=== PATIENT | female | born 1985 | race African-American/Black ===

== ENCOUNTER 2022-06-27 16:39 | Emergency (ER) | payer OTHER ==
[2022-06-27 16:45] VITALS: BMI 32.1
[2022-06-27] MEDS ORDERED: SODIUM CHLORIDE 1,000 ML IV STA (17:53)
[2022-06-27] MEDS ORDERED: SODIUM CHLORIDE 0.9% 500 ML INFUS.BAG IV ONE (17:57)
[2022-06-27 18:06] LABS: HEMATOCRIT 32.8 % (32.4-45.2); HEMOGLOBIN 11.4 GM/dL (10.7-15.3); MCH 31.2 pg (25.7-33.7); MCHC 34.7 g/dl (32.0-36.0); MEAN PLT VOLUME 10.2 fl (7.5-11.1); PLATELET COUNT 107 10^3/uL (134-434); RBC 3.65 M/mm3 (3.60-5.2); RDW 14.5 % (11.6-15.6); WHITE BLOOD COUNT 8.2 K/mm3 (4.0-10.0)
[2022-06-27] MEDS ORDERED: ACETAMINOPHEN 1000 MG/100 ML BAG IVPB ONE (18:18)
[2022-06-27 18:37] LABS: ALBUMIN 2.9 g/dl (3.4-5.0); BLOOD UREA NITROGEN 4.1 mg/dL (7-18); CALCIUM 8.8 mg/dL (8.5-10.1)
[2022-06-27 18:41] LABS: ANISOCYTOSIS 1+; CREATININE 0.5 mg/dL (0.55-1.3); MACROCYTOSIS 1+
[2022-06-27 18:42] LABS: TOT PROT 6.6 g/dl (6.4-8.2)
[2022-06-27 18:50] LABS: BILIRUBIN,TOTAL 0.2 mg/dL (0.2-1)
[2022-06-27] MEDS ORDERED: ACETAMINOPHEN INJECTION 100 ML IVPB ONE (19:34)
[2022-06-27 22:53] VITALS: BP 122/85; PULSE 115; RESP 18; TEMP 98
== END 2022-06-27 23:41 | disposition home or self-care (01) ==
LOC: JER 16:39
PROC: 3E0333Z Introduction of Anti-inflammatory into Peripheral Vein, Percutaneous Approach (ICD-10-PCS; principal; 2022-06-27)
PROC: 3E0337Z Introduction of Electrolytic and Water Balance Substance into Peripheral Vein, Percutaneous Approach (ICD-10-PCS; 2022-06-27)
DX: O98.53 Other viral diseases complicating the puerperium (principal); U07.1 COVID-19; Z3A.33 33 weeks gestation of pregnancy
CPT/HCPCS: 0241U-QW; 36415; 80053; 84443; 85025; 93005; 93010; 99285-25

== ENCOUNTER 2022-08-06 06:15 | Inpatient (IN) | payer OTHER ==
[2022-08-06] MEDS ORDERED: CITRIC ACID/SODIUM CITRATE 30 ML UNIT-DOSE CUP PO ONE ×2 (06:20→09:13)
[2022-08-06] MEDS ORDERED: ELECTROLYTE-148 SOLN 500 ML IV SCH (06:30)
[2022-08-06 06:50] VITALS: BMI 32.8
[2022-08-06] MEDS ORDERED: ELECTROLYTE-148 SOLN 1,000 ML IV SCH ×2 (07:00→09:15)
[2022-08-06] MEDS ORDERED: ONDANSETRON 4 MG/2 ML VIAL IVPUSH PRN (08:45)
[2022-08-06] MEDS ORDERED: morphine SULFATE (PF) 1 MG/2 ML SYRINGE ONE (08:49)
[2022-08-06] MEDS ORDERED: ELECTROLYTE-148 SOLN 500 ML IV ONE (09:13)
[2022-08-06] MEDS ORDERED: ceFAZolin SODIUM 1 GM VIAL ONE (09:31)
[2022-08-06] MEDS ORDERED: PHENYLEPHRINE HCL 10 MG/1 ML SINGLE DOSE VIAL ONE (09:31)
[2022-08-06] MEDS ORDERED: ONDANSETRON 4 MG/2 ML VIAL ONE (09:31)
[2022-08-06] MEDS ORDERED: OXYTOCIN 10 UNITS/ML VIAL ONE ×2 (09:31→09:54)
[2022-08-06] MEDS ORDERED: ACETAMINOPHEN 325 MG TABLET (FP) PO PRN (10:43)
[2022-08-06 10:44] LABS: CORD HCO3 26.7 mmHg (20-29); CORD PCO2 68.5 mmHg (30-78); CORD pH 7.208 (7.14-7.44)
[2022-08-06 10:54] LABS: CORD BASE EXCESS -1.8 mmol/L (0-2); CORD HCO3 24.6 mmHg (20-29); CORD PCO2 48.1 mmHg (30-78); CORD pH 7.326 (7.14-7.44)
[2022-08-06] MEDS ORDERED: OXYTOCIN 20 UNITS in 0.9% NS 20 UNIT/1,000 ML INFUS.BAG IV ONE (12:13)
[2022-08-06] MEDS: OXYTOCIN 20 UNITS in 0.9% NS 20 UNIT/1,000 ML INFUS.BAG IV SCH ×2 (12:15→21:11)
[2022-08-06] MEDS: IBUPROFEN 800 MG/8 ML IJ IVPB PRN ×2 (13:00→21:06)
[2022-08-06] MEDS ORDERED: oxyCODONE HCL 5 MG TABLET PO PRN (22:43)
[2022-08-07] MEDS: SIMETHICONE 80 MG TAB.CHEW (FP) PO PRN ×3 (03:48→16:34)
[2022-08-07] MEDS: IBUPROFEN 600 MG TABLET (FP) PO PRN ×2 (03:48→16:34)
[2022-08-07] MEDS: IBUPROFEN 800 MG/8 ML IJ IVPB PRN (05:51)
[2022-08-07 09:55] VITALS: RESP 18
[2022-08-07] MEDS ORDERED: BISACODYL 10 MG SUPP.RECT RC PRN (10:43)
[2022-08-07 11:29] LABS: BASO % 0.1 % (0-2.0); EOS % 0.5 % (0-4.5); HEMATOCRIT 32.5 % (32.4-45.2); HEMOGLOBIN 10.9 GM/dL (10.7-15.3); LYMPH % 10.7 % (8-40); MCH 30.3 pg (25.7-33.7); MCHC 33.6 g/dl (32.0-36.0); MEAN CELL VOLUME 90.4 fl (80-96); MEAN PLT VOLUME 10.8 fl (7.5-11.1); MONO % 9.7 % (3.8-10.2); PLATELET COUNT 146 10^3/uL (134-434); RDW 14.3 % (11.6-15.6); WHITE BLOOD COUNT 16.2 K/mm3 (4.0-10.0)
[2022-08-08] MEDS: SIMETHICONE 80 MG TAB.CHEW (FP) PO PRN ×3 (01:45→15:24)
[2022-08-08] MEDS: IBUPROFEN 600 MG TABLET (FP) PO PRN ×4 (01:45→21:23)
[2022-08-08] MEDS ORDERED: LABETALOL HCL 200 MG TABLET (FP) PO ONE (14:55)
[2022-08-08] MEDS: LABETALOL HCL 200 MG TABLET (FP) PO SCH (21:23)
[2022-08-09] MEDS: IBUPROFEN 600 MG TABLET (FP) PO PRN (05:47)
[2022-08-09 08:53] LABS: BASO % 0.2 % (0-2.0); EOS % 1.7 % (0-4.5); HEMATOCRIT 28.1 % (32.4-45.2); LYMPH % 18.9 % (8-40); MCH 31.9 pg (25.7-33.7); MCHC 35.4 g/dl (32.0-36.0); MEAN PLT VOLUME 9.7 fl (7.5-11.1); MONO % 13.7 % (3.8-10.2); NEUT % 65.5 % (42.8-82.8); PLATELET COUNT 139 10^3/uL (134-434); RBC 3.12 M/mm3 (3.60-5.2); RDW 14.5 % (11.6-15.6); WHITE BLOOD COUNT 9.1 K/mm3 (4.0-10.0)
[2022-08-09 09:39] VITALS: PULSE 86; TEMP 98.6
[2022-08-09 09:40] VITALS: BP 133/90
[2022-08-09] MEDS: LABETALOL HCL 200 MG TABLET (FP) PO SCH (10:07)
== END 2022-08-09 12:45 | disposition home or self-care (01) | DRG 540 ==
LOC: JLDR 06:15 → J3W 12:45
PROVIDERS: ADMIT Student in an Organized Health Care Education/Training Program; ATTEND Student in an Organized Health Care Education/Training Program
PROC: 10D00Z1 Extraction of Products of Conception, Low, Open Approach (ICD-10-PCS; principal; 2022-08-06)
DX: O13.4 Gestational [pregnancy-induced] hypertension without significant proteinuria, complicating childbirth (principal); O36.63X0 Maternal care for excessive fetal growth, third trimester, not applicable or unspecified; O69.81X0 Labor and delivery complicated by cord around neck, without compression, not applicable or unspecified; Z3A.39 39 weeks gestation of pregnancy; Z37.0 Single live birth
CPT/HCPCS: 36415; 36600; 80053; 82570; 82803; 84156; 85025; 85027; 85610; 85730; 86780; 86850; 86900; 86901; 88307-TC; C9803-CS; U0003; U0005